=== PATIENT | female | born 1980 | race Caucasian/White ===

== ENCOUNTER → 2018-02-18 13:16 | Outpatient (CLI) | payer OTHER, MEDICAID, SELFPAY ==
--- NOTE | 2018-02-18 13:18 | DI.US.S_ITS ---
PROCEDURE: US PERIPH VENOUS LOW EXTREM RT INDICATIONS: RIGHT LEG SWELLING TECHNIQUE: Real-time imaging, as well as color and pulse Doppler interrogation, were performed of the lower extremity deep veins from the inguinal ligament to the popliteal fossa. COMPARISON: None. FINDINGS: The deep veins are normally compressible, and free of intraluminal thrombus. Color and pulse Doppler demonstrate normal phasic intraluminal flow. There is normal augmentation response to distal compression maneuver. IMPRESSION: Negative for DVT Dictated by: Daniel Kinney M.D. on 02/18/2018 at 14:22 Approved by: Daniel Kinney M.D. on 02/18/2018 at 14:23
== END ==
PROVIDERS: PCP Family Medicine; Visit Provider Family Medicine
DX: M79.89 Other specified soft tissue disorders (principal)
CPT/HCPCS: 93971

== ENCOUNTER → 2018-05-03 14:30 | Outpatient (CLI) | payer OTHER, MEDICAID, SELFPAY | PROVIDERS: PCP Family Medicine; Visit Provider Physician Assistant | DX: R52 Pain, unspecified (principal) | CPT/HCPCS: 87086 ==

== ENCOUNTER → 2018-10-29 15:41 | Outpatient (CLI) | payer OTHER, MEDICAID, SELFPAY ==
[2018-10-29 17:08] LABS: Add Manual Diff / Slide Review NO; Basophils Absolute Auto 0 /uL (0-100); Basophils Percent Auto 0.5 % (0-2); Eosinophils Absolute Auto 300 /uL (0-450); Eosinophils Percent Auto 3.4 % (2-4); Hematocrit 43.6 % (36-46); Hemoglobin 14.3 g/dL (12.0-16.0); Lymphocytes Absolute Auto 2200 /uL (1100-4500); Lymphocytes Percent Auto 25.2 % (25-40); Mean Corpuscular HGB Conc 32.8 % (30-36); Mean Corpuscular Hemoglobin 30.6 PG (26-34); Mean Corpuscular Volume 93.2 fL (80-100); Monocytes Absolute Auto 600 /uL (0-900); Monocytes Percent Auto 6.6 % (3-14); Neutrophils Absolute Auto 5500 /uL (1500-7000); Neutrophils Percent Auto 64.3 % (50-75); Platelet Count 302 X10^3/uL (150-400); Red Blood Cell Count 4.68 X10^6/uL (4.0-5.2); Red Cell Distribution Width 13.3 % (11.6-14.8); White Blood Cell Count 8.6 X10^3/uL (4.5-11.0)
[2018-10-29 17:47] LABS: Alanine Aminotransferase 28 IU/L (9-52); Albumin 4.8 g/dL (3.5-5.0); Albumin Globulin Ratio 1.6 (1.0-2.8); Alkaline Phosphatase 56 U/L (38-126); Aspartate Aminotransferase 29 IU/L (14-36); BUN Creatinine Ratio 22.9 (6-22); Bilirubin Total 0.2 mg/dL (0.2-1.3); Blood Urea Nitrogen 16 mg/dL (7-17); Calcium 9.5 mg/dL (8.4-10.2); Carbon Dioxide 28 mmol/L (22-32); Chloride 101 mmol/L (98-107); Cholesterol 181 mg/dL (140-199); Estimated Glomerular Filt Rate > 60.0 mL/min (>60); Glucose 90 mg/dL (70-100); HDL Cholesterol 65 mg/dL (40-60); HEMOLYSIS < 15 (0-50); LDL Cholesterol Calculated 89 mg/dL (<100); Potassium 3.9 mmol/L (3.4-5.1); Sodium 139 mmol/L (137-145); Total Protein 7.8 g/dL (6.3-8.2); Triglycerides 134 mg/dL (35-150)
[2018-10-29 17:58] LABS: C-Reactive Protein Quant < 0.5 mg/dL (<1.0)
[2018-10-29 18:12] LABS: Erythrocyte Sedimentation Rate 5 MM/HR (0-20)
[2018-10-29 18:19] LABS: TSH w/ Reflex to FT4 0.75 uIU/mL (0.47-4.68)
== END ==
PROVIDERS: PCP Family Medicine; Visit Provider Family Medicine
DX: E66.3 Overweight (principal); M79.10 Myalgia, unspecified site; Z13.1 Encounter for screening for diabetes mellitus; Z13.220 Encounter for screening for lipoid disorders
CPT/HCPCS: 36415; 80053; 80061; 84443; 85025; 85651; 86140

== ENCOUNTER → 2018-12-31 16:11 | Outpatient (CLI) | payer OTHER, MEDICAID, SELFPAY ==
[2018-12-31 17:20] LABS: Rheumatoid Factor < 8.6 IU/mL (<12.0)
[2019-01-04 11:41] LABS: CCP Antibody (IgG) < 16 Units (< 20)
== END ==
PROVIDERS: PCP Family Medicine; Visit Provider Family Medicine
DX: M25.50 Pain in unspecified joint (principal)
CPT/HCPCS: 36415; 83516; 86430

== ENCOUNTER → 2019-03-18 17:01 | Outpatient (CLI) | payer OTHER, MEDICAID, SELFPAY ==
--- NOTE | 2019-03-18 17:03 | DI.RAD.S_ITS ---
PROCEDURE: XR KNEE LT 3V INDICATIONS: sunrise view, OA, RA, CPPP TECHNIQUE: 3 views of the knee were acquired. COMPARISON: None. FINDINGS: Bones: No fractures or dislocations. No suspicious bony lesions. Mild tricompartmental osteoarthritis. No chondrocalcinosis. Soft tissues: No joint effusion. No suspicious soft tissue calcifications. IMPRESSION: Mild tricompartmental osteoarthritis. Dictated by: Yahaira Mixon MD, PhD on 03/18/2019 at 18:18 Approved by: Yahaira Mixon MD, PhD on 03/18/2019 at 18:18
--- NOTE | 2019-03-18 17:03 | DI.RAD.S_ITS ---
PROCEDURE: XR KNEE RT 3V INDICATIONS: sunrise view, OA, RA, CPPP TECHNIQUE: 3 views of the knee were acquired. COMPARISON: None. FINDINGS: Bones: No fractures or dislocations. No suspicious bony lesions. Mild tricompartmental osteoarthritis. No chondrocalcinosis. Soft tissues: No joint effusion. No suspicious soft tissue calcifications. IMPRESSION: Mild tricompartmental osteoarthritis. Dictated by: Yahaira Mixon MD, PhD on 03/18/2019 at 18:19 Approved by: Yahaira Mixon MD, PhD on 03/18/2019 at 18:19
== END ==
PROVIDERS: PCP Family Medicine; Visit Provider Family Medicine
DX: M17.0 Bilateral primary osteoarthritis of knee (principal); M25.561 Pain in right knee; M25.562 Pain in left knee
CPT/HCPCS: 73562

== ENCOUNTER → 2019-09-28 16:54 | Outpatient (CLI) | payer OTHER, MEDICAID, SELFPAY ==
--- NOTE | 2019-09-28 | DI.MRI.S_ITS ---
PROCEDURE: MR KNEE LT WO CON INDICATIONS: LEFT KNEE PAIN TECHNIQUE: Noncontrast sagittal PD fast spin echo and T2 fast spin echo with fat saturation, sagittal 3-D FLASH with fat saturation; coronal T1 spin echo and PD fast spin echo with fat saturation, and axial PD fast spin echo with fat saturation through the knee. COMPARISON: [facility], CR, XR KNEE STANDING BILATERAL, 07/21/2019, 14:08. FINDINGS: Image quality: Excellent. Menisci: The medial meniscus is intact. There is linear oblique high T2 signal intensity traversing the free edge of the posterior horn lateral meniscus, demonstrating superior and inferior articular surface extension. Cruciate ligaments: The anterior and posterior cruciate ligaments appear intact. Medial structures: The medial collateral ligament appears intact. Visualized portions of the pes anserinus tendons appear normal. No abnormal bursal fluid. Lateral structures: The lateral collateral ligament, long and short heads of the biceps femoris tendon appear intact. The popliteus tendon appears normal. Iliotibial band appears normal. Anterior structures: The quadriceps and patellar tendons appear intact. Patellar alignment is normal. No femoral trochlear dysplasia or ventral trochlear prominence. No edema in the infrapatellar fat pad. Bones and cartilage: No bone marrow contusions or fractures. Mild tricompartmental articular osteophyte formation is present. Moderate diffuse articular cartilage loss overlies the weightbearing aspects of the medial femoral condyle and medial tibial plateau. Articular cartilage fibrillation and overlies the lateral patellar facet. Moderate articular cartilage loss overlies the medial patellar facet. Joint space: There is physiologic knee joint fluid. Trace Gallo's cyst. Normal appearing synovial plicae are incidentally noted. IMPRESSION: 1. Tricompartmental osteoarthritis with associated articular cartilage loss. 2. Posterior horn lateral meniscal tear. 3. Trace Gallo's cyst. Dictated by: Uzair Styles M.D. on 09/29/2019 at 8:54 Approved by: Uzair Styles M.D. on 09/29/2019 at 8:57
--- NOTE | 2019-09-28 | DI.MRI.S_ITS ---
PROCEDURE: MR KNEE RT WO CON INDICATIONS: RIGHT KNEE PAIN TECHNIQUE: Noncontrast sagittal PD fast spin echo and T2 fast spin echo with fat saturation, sagittal 3-D FLASH with fat saturation; coronal T1 spin echo and PD fast spin echo with fat saturation, and axial PD fast spin echo with fat saturation through the knee. COMPARISON: [facility], CR, XR KNEE STANDING BILATERAL, 07/21/2019, 14:08. FINDINGS: Image quality: Excellent. Menisci: The medial and lateral menisci demonstrate normal morphology and internal signal. The meniscal root ligaments appear intact. Cruciate ligaments: The anterior and posterior cruciate ligaments appear intact. Medial structures: The medial collateral ligament appears intact. Visualized portions of the pes anserinus tendons appear normal. No abnormal bursal fluid. Lateral structures: The lateral collateral ligament, long and short heads of the biceps femoris tendon appear intact. The popliteus tendon appears normal. Iliotibial band appears normal. Anterior structures: The quadriceps and patellar tendons appear intact. Patellar alignment is normal. No femoral trochlear dysplasia or ventral trochlear prominence. No edema in the infrapatellar fat pad. Bones and cartilage: No bone marrow contusions or fractures. Mild tricompartmental periarticular osteophyte formation is present. Mild diffuse articular cartilage loss overlies the weightbearing aspects of the medial femoral condyle and medial tibial plateau. Moderate articular cartilage loss overlies the medial and lateral patellar facets. Superimposed high-grade region of articular cartilage loss measuring 4 mm overlies the medial patellar apex. Joint space: There is physiologic knee joint fluid. Small Gallo's cyst. Normal appearing synovial plicae are incidentally noted. IMPRESSION: 1. Tricompartmental osteoarthritis. with associated articular cartilage loss. 2. No internal derangement. 3. Small Gallo's cyst. Dictated by: Uzair Styles M.D. on 09/29/2019 at 8:58 Approved by: Uzair Styles M.D. on 09/29/2019 at 9:04
[2019-09-28 18:49] LABS: Add Manual Diff / Slide Review NO; Basophils Absolute Auto 0 /uL (0-100); Basophils Percent Auto 0.5 % (0-2); Eosinophils Absolute Auto 300 /uL (0-450); Eosinophils Percent Auto 4.1 % (2-4); Hematocrit 42.3 % (36-46); Hemoglobin 14.5 g/dL (12.0-16.0); Lymphocytes Absolute Auto 2400 /uL (1100-4500); Lymphocytes Percent Auto 29.2 % (25-40); Mean Corpuscular HGB Conc 34.2 % (30-36); Mean Corpuscular Hemoglobin 31.3 PG (26-34); Mean Corpuscular Volume 91.7 fL (80-100); Monocytes Absolute Auto 600 /uL (0-900); Monocytes Percent Auto 7.7 % (3-14); Neutrophils Absolute Auto 4700 /uL (1500-7000); Neutrophils Percent Auto 58.5 % (50-75); Platelet Count 291 X10^3/uL (150-400); Red Blood Cell Count 4.62 X10^6/uL (4.0-5.2); White Blood Cell Count 8.1 X10^3/uL (4.5-11.0)
[2019-09-28 19:43] LABS: Free T4, Direct Thyroxine 1.17 ng/dL (0.78-2.19)
[2019-09-28 19:56] LABS: Thyroid Stimulating Hormone 2.16 uIU/mL (0.47-4.68)
== END ==
PROVIDERS: PCP Family Medicine; Visit Provider Orthopaedic Surgery
DX: M25.562 Pain in left knee (principal); M25.561 Pain in right knee; S83.282A Other tear of lateral meniscus, current injury, left knee, initial encounter; M17.0 Bilateral primary osteoarthritis of knee; M71.21 Synovial cyst of popliteal space [Baker], right knee; N92.0 Excessive and frequent menstruation with regular cycle; R68.89 Other general symptoms and signs
CPT/HCPCS: 36415; 73721; 84439; 84443; 84481; 85025

== ENCOUNTER → 2020-04-11 17:04 | Outpatient (CLI) | payer OTHER, MEDICAID, SELFPAY ==
[2020-04-11 17:56] LABS: Alanine Aminotransferase 14 IU/L (<35); Albumin 4.6 g/dL (3.5-5.0); Albumin Globulin Ratio 1.5 (1.0-2.8); Alkaline Phosphatase 55 U/L (38-126); Aspartate Aminotransferase 23 IU/L (14-36); BUN Creatinine Ratio 19.7 (6-22); Bilirubin Total 0.4 mg/dL (0.2-1.3); Blood Urea Nitrogen 13 mg/dL (7-17); Calcium 9.5 mg/dL (8.4-10.2); Carbon Dioxide 25 mmol/L (22-32); Chloride 106 mmol/L (98-107); Cholesterol 189 mg/dL (140-199); Estimated Glomerular Filt Rate > 60.0 mL/min (>60); Glucose 97 mg/dL (70-100); HDL Cholesterol 58 mg/dL (40-60); HEMOLYSIS < 15 (0-50); LDL Cholesterol Calculated 105 mg/dL (<100); Sodium 139 mmol/L (137-145); Total Protein 7.6 g/dL (6.3-8.2); Triglycerides 131 mg/dL (35-150)
[2020-04-11 17:58] LABS: Hemoglobin A1C% w Est Avg Glu 5.1 % (4.0-6.0)
[2020-04-11 18:13] LABS: Vitamin D 25 Hydroxy (D3) 33.3 ng/mL (30.0-100.0)
[2020-04-11 18:27] LABS: TSH w/ Reflex to FT4 0.96 uIU/mL (0.47-4.68)
[2020-04-12 09:39] LABS: Rubeola Measles IgG 22.8 AU/mL (Immune >16.4)
[2020-04-12 11:10] LABS: Mumps Virus IgG Antibody <9.0 AU/mL (Immune >10.9)
[2020-04-12 19:28] LABS: Rubella Antibody IgG 96.3 IU/mL (>15)
== END ==
PROVIDERS: PCP Family Medicine; Referring Provider Family Medicine; Visit Provider Family Medicine
DX: E28.2 Polycystic ovarian syndrome (principal); F32.9 Major depressive disorder, single episode, unspecified; L68.0 Hirsutism; R53.83 Other fatigue; Z13.1 Encounter for screening for diabetes mellitus; Z13.220 Encounter for screening for lipoid disorders; Z01.84 Encounter for antibody response examination; M85.80 Other specified disorders of bone density and structure, unspecified site
CPT/HCPCS: 36415; 80053; 80061; 82306; 83036; 84443; 86735; 86762; 86765

== ENCOUNTER → 2020-08-30 17:00 | Outpatient (CLI) | payer OTHER, MEDICAID, SELFPAY ==
--- NOTE | 2020-08-30 17:02 | DI.MG.S_ITS ---
BILATERAL DIGITAL SCREENING MAMMOGRAM 3D/2D WITH CAD: 08/30/2020 CLINICAL: Routine screening. Baseline exam. Family history of breast cancer. No prior exams were available for comparison. The tissue of both breasts is heterogeneously dense. This may lower the sensitivity of mammography. Current study was also evaluated with a Computer Aided Detection (CAD) system. No significant masses, calcifications, or other findings are seen in either breast. IMPRESSION: NEGATIVE There is no mammographic evidence of malignancy. A 1 year screening mammogram is recommended. This exam was interpreted at Station ID: [id number]. NOTE: For mammograms, a report in lay terms will be sent to the patient. Approximately 15% of breast malignancies will not be visualized mammographically. In the management of a palpable breast mass, a negative mammogram must not discourage biopsy of a clinically suspicious lesion. Electronically Signed By: Alan krueger/beverly:09/03/2020 07:36:27 letter sent: Normal Exam ACR BI-RADS Category 1: Negative 3341F
== END ==
PROVIDERS: PCP Family Medicine; Referring Provider Family Medicine; Visit Provider Family Medicine
DX: Z12.31 Encounter for screening mammogram for malignant neoplasm of breast (principal); Z80.3 Family history of malignant neoplasm of breast
CPT/HCPCS: 77063; 77067

== ENCOUNTER → 2020-09-10 15:44 | Outpatient (CLI) | payer OTHER, MEDICAID, SELFPAY ==
--- NOTE | 2020-09-10 15:45 | DI.RAD.S_ITS ---
PROCEDURE: XR FOOT RT MIN 3V INDICATIONS: 3-4th toe pain/injury, r/o fx TECHNIQUE: 3 views of the foot were acquired. COMPARISON: None. FINDINGS: Bones: No fractures or dislocations. No suspicious bony lesions. Soft tissues: No tibiotalar joint effusion. Achilles tendon appears normal. IMPRESSION: No fracture or subluxation found. Dictated by: Noe Cole M.D. on 09/10/2020 at 16:45 Approved by: Noe Cole M.D. on 09/10/2020 at 16:45
== END ==
PROVIDERS: PCP Family Medicine; Referring Provider Physician Assistant; Visit Provider Physician Assistant
DX: S99.921A Unspecified injury of right foot, initial encounter (principal); X58.XXXA Exposure to other specified factors, initial encounter
CPT/HCPCS: 73630

== ENCOUNTER → 2020-11-20 15:09 | Outpatient (CLI) | payer OTHER, MEDICAID, SELFPAY ==
[2020-11-20 15:39] LABS: Alanine Aminotransferase 17 IU/L (<35); Albumin 4.6 g/dL (3.5-5.0); Albumin Globulin Ratio 1.6 (1.0-2.8); Alkaline Phosphatase 62 U/L (38-126); Amylase 83 U/L (30-110); Aspartate Aminotransferase 22 IU/L (14-36); BUN Creatinine Ratio 23.9 (6-22); Bilirubin Total 0.1 mg/dL (0.2-1.3); Blood Urea Nitrogen 17 mg/dL (7-17); Calcium 10.2 mg/dL (8.4-10.2); Carbon Dioxide 27 mmol/L (22-32); Chloride 103 mmol/L (98-107); Estimated Glomerular Filt Rate > 60.0 mL/min (>60); Globulin 2.9 g/dL (1.7-4.1); Glucose 101 mg/dL (70-100); HEMOLYSIS < 15 (0-50); Lipase 60 U/L (23-300); Sodium 139 mmol/L (137-145); Total Protein 7.5 g/dL (6.3-8.2)
== END ==
PROVIDERS: PCP Family Medicine; Referring Provider Physician Assistant; Visit Provider Physician Assistant
DX: R10.9 Unspecified abdominal pain (principal)
CPT/HCPCS: 36415; 80053; 82150; 83690

== ENCOUNTER → 2021-10-17 16:31 | Outpatient (CLI) | payer OTHER, MEDICAID, SELFPAY ==
[2021-10-17 17:28] LABS: Add Manual Diff / Slide Review NO; Basophils Absolute Auto 0 /uL (0-100); Basophils Percent Auto 0.4 % (0-2); Eosinophils Absolute Auto 500 /uL (0-450); Eosinophils Percent Auto 4.7 % (2-4); Hematocrit 39.3 % (36-46); Hemoglobin 13.5 g/dL (12.0-16.0); Lymphocytes Absolute Auto 2500 /uL (1100-4500); Lymphocytes Percent Auto 23.9 % (25-40); Mean Corpuscular HGB Conc 34.3 % (30-36); Mean Corpuscular Hemoglobin 30.6 PG (26-34); Mean Corpuscular Volume 89.3 fL (80-100); Monocytes Absolute Auto 800 /uL (0-900); Monocytes Percent Auto 8.3 % (3-14); Neutrophils Absolute Auto 6400 /uL (1500-7000); Neutrophils Percent Auto 62.7 % (50-75); Platelet Count 316 X10^3/uL (150-400); Red Cell Distribution Width 13.1 % (11.6-14.8); White Blood Cell Count 10.2 X10^3/uL (4.5-11.0)
[2021-10-17 18:01] LABS: Alanine Aminotransferase 22 IU/L (<35); Albumin 4.6 g/dL (3.5-5.0); Albumin Globulin Ratio 1.7 (1.0-2.8); Alkaline Phosphatase 58 U/L (38-126); Aspartate Aminotransferase 31 IU/L (14-36); BUN Creatinine Ratio 22.5 (6-22); Bilirubin Total 0.3 mg/dL (0.2-1.3); Blood Urea Nitrogen 16 mg/dL (7-17); C-Reactive Protein Quant < 0.5 mg/dL (<1.0); Calcium 10.1 mg/dL (8.4-10.2); Carbon Dioxide 25 mmol/L (22-32); Chloride 106 mmol/L (98-107); Estimated Glomerular Filt Rate > 60.0 mL/min (>60); Globulin 2.7 g/dL (1.7-4.1); Glucose 93 mg/dL (70-100); HEMOLYSIS 17 (0-50); Potassium 4.7 mmol/L (3.4-5.1); Sodium 139 mmol/L (137-145); Total Protein 7.3 g/dL (6.3-8.2)
[2021-10-17 18:17] LABS: Vitamin D 25 Hydroxy (D3) 33.9 ng/mL (30.0-100.0)
[2021-10-17 18:30] LABS: TSH w/ Reflex to FT4 0.66 uIU/mL (0.47-4.68)
[2021-10-17 19:39] LABS: Erythrocyte Sedimentation Rate 33 MM/HR (0-20)
== END ==
PROVIDERS: PCP Family Medicine; Referring Provider Family Medicine; Visit Provider Family Medicine
DX: G44.219 Episodic tension-type headache, not intractable (principal); M54.2 Cervicalgia
CPT/HCPCS: 36415; 80053; 82306; 84443; 85025; 85651; 86140

== ENCOUNTER → 2021-11-03 15:54 | Outpatient (CLI) | payer OTHER, MEDICAID, SELFPAY ==
--- NOTE | 2021-11-03 15:55 | DI.RAD.S_ITS ---
PROCEDURE: XR CHEST 2V INDICATIONS: cough TECHNIQUE: 2 views of the chest were acquired. COMPARISON: None. FINDINGS: Surgical changes and devices: None. Lungs and pleura: Lungs are clear. No pleural effusions or pneumothorax. Mediastinum: Mediastinal contours are normal. Heart size is normal. Bones and chest wall: No suspicious bony abnormalities. Soft tissues appear unremarkable. IMPRESSION: No evidence acute pulmonary process. Dictated by: Severo Concepcion M.D. on 11/03/2021 at 15:31 Approved by: Severo Concepcion M.D. on 11/03/2021 at 15:32
== END ==
PROVIDERS: PCP Family Medicine; Referring Provider Nurse Practitioner Family; Visit Provider Nurse Practitioner Family
DX: T17.928A Food in respiratory tract, part unspecified causing other injury, initial encounter (principal)
CPT/HCPCS: 71046

== ENCOUNTER → 2021-11-14 12:08 | Outpatient (CLI) | payer OTHER, MEDICAID, SELFPAY ==
[2021-11-17 20:57] LABS: Alder IgE <0.10 kU/L (Class 0); Alternaria alternata IgE <0.10 kU/L (Class 0); Aspergillus fumigatus IgE <0.10 kU/L (Class 0); Box Elder IgE <0.10 kU/L (Class 0); Cladosporium herbarum IgE <0.10 kU/L (Class 0); Cockroach IgE <0.10 kU/L (Class 0); Cottonwood IgE <0.10 kU/L (Class 0); D farinae IgE <0.10 kU/L (Class 0); D pteronyssinus IgE <0.10 kU/L (Class 0); Dog Dander IgE <0.10 kU/L (Class 0); Elm Tree IgE <0.10 kU/L (Class 0); Immunoglobulin E 7 IU/mL (6-495); Mountain Cedar IgE <0.10 kU/L (Class 0); Mouse Urine Proteins IgE <0.10 kU/L (Class 0); Nettle IgE <0.10 kU/L (Class 0); Oak Tree IgE <0.10 kU/L (Class 0); Penicillium chrysogen IgE <0.10 kU/L (Class 0); Pigweed, Common IgE <0.10 kU/L (Class 0); Ragweed, Short <0.10 kU/L (Class 0); Sheep Sorrel IgE <0.10 kU/L (Class 0); Silver Birch IgE <0.10 kU/L (Class 0); Timothy Grass IgE <0.10 kU/L (Class 0); Walnut Allery IgE < 0.10 kU/L (Class 0); White ash IgE <0.10 kU/L (Class 0)
[2021-11-20 10:39] LABS: Cat Dander IgE <0.10
== END ==
PROVIDERS: PCP Family Medicine; Referring Provider Registered Nurse Diabetes Educator; Visit Provider Registered Nurse Diabetes Educator
DX: J45.40 Moderate persistent asthma, uncomplicated (principal)
CPT/HCPCS: 36415; 82785; 86003

== ENCOUNTER → 2022-02-20 16:12 | Outpatient (CLI) | payer OTHER, MEDICAID, SELFPAY ==
--- NOTE | 2022-02-20 16:14 | DI.MG.S_ITS ---
BILATERAL DIGITAL SCREENING MAMMOGRAM 3D/2D WITH CAD: 02/20/2022 CLINICAL: Routine screening. Family history of breast cancer. Comparison is made to exam dated: 08/30/2020 mammogram - [facility]. The tissue of both breasts is heterogeneously dense. This may lower the sensitivity of mammography. Current study was also evaluated with a Computer Aided Detection (CAD) system. There is a new asymmetry in the left breast middle depth lateral region seen on the craniocaudal view only. There also is a new asymmetry in the left breast anterior depth lateral region seen on the craniocaudal view only. No other significant masses, calcifications, or other findings are seen in either breast. IMPRESSION: INCOMPLETE: NEEDS ADDITIONAL IMAGING EVALUATION The new asymmetry in the left breast middle depth lateral region seen on the craniocaudal view only is indeterminate. Additional views with possible ultrasound are recommended. The new asymmetry in the left breast anterior depth lateral region seen on the craniocaudal view only is indeterminate. Additional views with possible ultrasound are recommended. Based on the Tyrer Cuzick model (a risk assessment model) the patient's lifetime risk is 14.9% and her 10 year risk is 2.2%. According to the ACR, ACS, and NCCN guidelines, an annual breast MRI exam along with mammogram is recommended if the patient's lifetime risk is 20% or greater. This exam was interpreted at Station ID: [id number]. NOTE: For mammograms, a report in lay terms will be sent to the patient. Approximately 15% of breast malignancies will not be visualized mammographically. In the management of a palpable breast mass, a negative mammogram must not discourage biopsy of a clinically suspicious lesion. Electronically Signed By: Ben Salas M.D., jr/beverly:02/21/2022 09:51:08 letter sent: Additional Imaging Needed ACR BI-RADS Category 0: Incomplete 3340F
== END ==
PROVIDERS: PCP Family Medicine; Referring Provider Family Medicine; Visit Provider Family Medicine
DX: Z12.31 Encounter for screening mammogram for malignant neoplasm of breast (principal); Z80.3 Family history of malignant neoplasm of breast
CPT/HCPCS: 77063; 77067

== ENCOUNTER → 2022-04-10 12:11 | Outpatient (CLI) | payer OTHER, MEDICAID, SELFPAY ==
--- NOTE | 2022-04-10 | DI.MG.S_ITS ---
UNILATERAL LEFT DIGITAL DIAGNOSTIC MAMMOGRAM 3D/2D WITH ADDITIONAL VIEWS: 04/10/2022 CLINICAL: Additional evaluation requested from prior study. Comparison is made to exams dated: 02/20/2022 mammogram and 08/30/2020 mammogram - [facility]. The tissue of left breast is heterogeneously dense. This may lower the sensitivity of mammography. There is a 0.4 cm round mass in the left breast at 5 o'clock middle depth 6 cm from the nipple. This is seen in additional views. There also is a new 0.6 cm oval mass in the left breast posterior depth lateral region seen on the craniocaudal view only 11 cm from the nipple. No other significant masses or calcifications are seen in the breast. IMPRESSION: INCOMPLETE: NEEDS ADDITIONAL IMAGING EVALUATION The 0.4 cm round mass in the left breast at 5 o'clock middle depth is indeterminate. An ultrasound is recommended. The new 0.6 cm oval mass in the left breast posterior depth lateral region seen on the craniocaudal view only is consistent with a solid mass or a lymph node and is indeterminate. An ultrasound is recommended. US will be performed and dictated separately. Based on the Tyrer Cuzick model (a risk assessment model) the patient's lifetime risk is 14.9% and her 10 year risk is 2.2%. According to the ACR, ACS, and NCCN guidelines, an annual breast MRI exam along with mammogram is recommended if the patient's lifetime risk is 20% or greater. This exam was interpreted at Station ID: [id number]. NOTE: For mammograms, a report in lay terms will be sent to the patient. Approximately 15% of breast malignancies will not be visualized mammographically. In the management of a palpable breast mass, a negative mammogram must not discourage biopsy of a clinically suspicious lesion. Electronically Signed By: Ousmane Cheema acr/:04/10/2022 12:38:13 letter sent: Need Ultrasound ACR BI-RADS Category 0: Incomplete 3340F
--- NOTE | 2022-04-10 12:13 | DI.US.S_ITS ---
PROCEDURE: US BREAST LT LIMITED COMPARISON: In the benign simple cyst and lymph node. INDICATIONS: Abnormal mammogram of left breast FINDINGS: IMPRESSION: In the left breast 4 o'clock position 6 cm from the nipple a simple cyst measures 4 x 5 x 5 mm. In the left breast 4 o'clock position 11 cm from the nipple there is a benign appearing lymph node measuring 6 x 3 x 5 mm. Both of these findings correlate with mammographic findings. Dictated by: Ousmane Cheema M.D. on 04/10/2022 at 12:54 Approved by: Ousmane Cheema M.D. on 04/10/2022 at 12:59
== END ==
PROVIDERS: PCP Family Medicine; Referring Provider Family Medicine; Visit Provider Family Medicine
DX: R92.8 Other abnormal and inconclusive findings on diagnostic imaging of breast (principal); N63.23 Unspecified lump in the left breast, lower outer quadrant
CPT/HCPCS: 76642; 77065; G0279

== ENCOUNTER → 2023-01-15 12:33 | Outpatient (CLI) | payer OTHER, MEDICAID, SELFPAY ==
--- NOTE | 2023-01-15 12:35 | DI.RAD.S_ITS ---
PROCEDURE: XR CERVICAL SPINE 2V OR 3V INDICATIONS: pain TECHNIQUE: 3 view(s) of the cervical spine were acquired. COMPARISON: None. FINDINGS: Bones: No fractures or dislocations to the T1 level. There is loss of cervical lordosis. The lateral masses of C1 appear intact on the odontoid view. No suspicious bony lesions. Mild degenerative disc disease at C5-C6 and C6-C7. Soft tissues: No prevertebral soft tissue swelling. IMPRESSION: Mild degenerative disc disease. Dictated by: Fuad Asif M.D. on 01/15/2023 at 18:24 Approved by: Fuad Asif M.D. on 01/15/2023 at 18:26
--- NOTE | 2023-01-15 12:35 | DI.RAD.S_ITS ---
PROCEDURE: XR LUMBAR SPINE MIN 4V INDICATIONS: pain TECHNIQUE: 5 views of the lumbar spine were acquired, including bilateral oblique views. COMPARISON: None. FINDINGS: Bones: 5 nonrib-bearing vertebrae are present. There is normal bony alignment. No vertebral body compression fractures. No suspicious bony lesions. Mild degenerative disc disease throughout the lumbar spine. Moderate facet arthropathy at L4-L5 and L5-S1. Soft tissues: Overlying bowel gas pattern is normal. No suspicious soft tissue calcifications. Oblique images: No pars defects. IMPRESSION: 1. Mild degenerative disc and facet disease. Dictated by: Fuad Asif M.D. on 01/15/2023 at 15:28 Approved by: Fuad Asif M.D. on 01/15/2023 at 15:30
--- NOTE | 2023-01-15 12:35 | DI.RAD.S_ITS ---
PROCEDURE: XR THORACIC SPINE 3V INDICATIONS: pain TECHNIQUE: 3 views of the thoracic spine were acquired. COMPARISON: None. FINDINGS: Bones: No fractures or dislocations. No suspicious bony lesions. Mild degenerative disc disease at T 6-T7, T8-T9, T9-T10, T10-T11, T11-T12 and T12-L1. 12 pairs of ribs are noted, and appear intact where visualized. Soft tissues: No paravertebral stripe thickening. IMPRESSION: 1. Mild degenerative disc disease. Dictated by: Fuad Asif M.D. on 01/15/2023 at 18:26 Approved by: Fuad Asif M.D. on 01/15/2023 at 18:29
== END ==
PROVIDERS: PCP Family Medicine; Referring Provider Family Medicine; Visit Provider Family Medicine
DX: G89.29 Other chronic pain (principal); M54.50 Low back pain, unspecified; M51.34 Other intervertebral disc degeneration, thoracic region; M51.36 Other intervertebral disc degeneration, lumbar region; M47.816 Spondylosis without myelopathy or radiculopathy, lumbar region; M50.322 Other cervical disc degeneration at C5-C6 level
CPT/HCPCS: 72040; 72072; 72110

== ENCOUNTER → 2023-04-03 10:53 | Outpatient (CLI) | payer OTHER, MEDICAID, SELFPAY ==
[2023-04-03 12:16] LABS: Add Manual Diff / Slide Review NO; Basophils Absolute Auto 0 /uL (0-100); Basophils Percent Auto 0.4 % (0-2); Eosinophils Absolute Auto 400 /uL (0-450); Eosinophils Percent Auto 4.3 % (2-4); Hematocrit 42.2 % (36-46); Hemoglobin 14.2 g/dL (12.0-16.0); Lymphocytes Absolute Auto 1700 /uL (1100-4500); Mean Corpuscular HGB Conc 33.5 % (30-36); Mean Corpuscular Hemoglobin 30.2 PG (26-34); Mean Corpuscular Volume 90.1 fL (80-100); Monocytes Absolute Auto 600 /uL (0-900); Monocytes Percent Auto 6.6 % (3-14); Neutrophils Absolute Auto 6300 /uL (1500-7000); Neutrophils Percent Auto 69.7 % (50-75); Platelet Count 321 X10^3/uL (150-400); Red Blood Cell Count 4.69 X10^6/uL (4.0-5.2); Red Cell Distribution Width 13.2 % (11.6-14.8); White Blood Cell Count 9.1 X10^3/uL (4.5-11.0)
[2023-04-03 12:27] LABS: Alanine Aminotransferase 22 IU/L (<35); Albumin 4.6 g/dL (3.5-5.0); Albumin Globulin Ratio 1.6 (1.0-2.8); Alkaline Phosphatase 71 U/L (38-126); Aspartate Aminotransferase 24 IU/L (14-36); BUN Creatinine Ratio 24.6 (6-22); Bilirubin Total 0.4 mg/dL (0.2-1.3); Blood Urea Nitrogen 16 mg/dL (7-17); Calcium 9.2 mg/dL (8.4-10.2); Carbon Dioxide 23 mmol/L (22-32); Chloride 106 mmol/L (98-107); Estimated Glomerular Filt Rate > 60 mL/min (>60); Globulin 2.8 g/dL (1.7-4.1); Glucose 90 mg/dL (70-100); HEMOLYSIS < 15 (0-50); Potassium 4.3 mmol/L (3.4-5.1); Sodium 138 mmol/L (137-145); Total Protein 7.4 g/dL (6.3-8.2)
[2023-04-03 12:44] LABS: Vitamin D 25 Hydroxy (D3) 40.3 ng/mL (30.0-100.0)
[2023-04-03 13:00] LABS: TSH w/ Reflex to FT4 0.87 uIU/mL (0.47-4.68)
[2023-04-03 13:17] LABS: Vitamin B12 653 pg/mL (239-931)
== END ==
PROVIDERS: PCP Family Medicine; Referring Provider Family Medicine; Visit Provider Family Medicine
DX: K62.5 Hemorrhage of anus and rectum (principal); R53.83 Other fatigue
CPT/HCPCS: 36415; 80053; 82306; 82607; 84443; 85025

== ENCOUNTER 2023-05-05 15:30 | Outpatient (RCR) | payer OTHER, MEDICAID, SELFPAY ==
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
--- NOTE | 2023-05-05 17:06 | PT.OTN ---
Current Diagnoses Other chronic pain (05/05/23) Stiffness of other specified joint, not elsewhere classified (05/05/23) Torticollis (05/05/23) Cervicalgia (05/05/23) Low back pain, unspecified (05/05/23) Pain in thoracic spine (05/05/23) Segmental and somatic dysfunction of head region (05/05/23) Segmental and somatic dysfunction of cervical region (05/05/23) Segmental and somatic dysfunction of thoracic region (05/05/23) Segmental and somatic dysfunction of lumbar region (05/05/23) Segmental and somatic dysfunction of sacral region (05/05/23) Segmental and somatic dysfunction of pelvic region (05/05/23) Physical Therapy Treatment Note PT-OP-A Visit Information Start: 04/30/23 16:16 Freq: Status: Active Protocol: Document 05/05/23 15:45 AB (Rec: 05/05/23 17:06 AB [id number]) Out-Patient Physical Therapy Visit Information Visit Information Visit Type Treatment Note Visit Note Pt arrived late to appointment Visit Start Time 15:42 Visit Stop Time 14:15 Total Visit Minutes 32 Visit Number 2 Number of BASIN CLEANER Visits 0 PT-OP-B Current Condition Start: 04/30/23 16:16 Freq: Status: Active Protocol: Document 04/30/23 16:17 AB (Rec: 04/30/23 17:45 AB [id number]) Current Condition History of Current Condition Onset Date Chronic Current Complaints Neck pain (7/10 at worst and 2 /10 at best) and migraines History of Current Condition The pt reports a chronic history of neck and low back pain. Initially it started as spasms that didn't allow her to move, however this has improved. At this point, she has pain most of the time, but she has not found a correlation between time of day or specific movements. She also reports migraines and possibly tension headaches as well. She also report tightness in her neck and upper back, and has a point in her upper back which can cause pain with certain movements such as bending her head forward. Prior Treatments and Tests Dry needling, OMT, acupunture: only temporary relief. Treatment Goals Patient/Caregiver Goals To improve the tightness in her neck PT-OP-C Subjective Start: 04/30/23 16:16 Freq: Status: Active Protocol: Document 05/05/23 15:45 AB (Rec: 05/05/23 17:06 AB [id number]) OP-PT Subjective Patient Comments Patient Comments The pt reports she has has migraines on and off for the last few days. PT-OP-J Posture/Palpation/Skin Start: 04/30/23 16:16 Freq: Status: Active Protocol: Document 04/30/23 16:17 AB (Rec: 04/30/23 17:45 AB [id number]) Posture Evaluation Position Sitting Evaluation View Lateral Head/C-Spine Posture Forward Head T-Spine Posture Increased Kyphosis PT-OP-K Range of Motion Start: 04/30/23 16:16 Freq: Status: Active Protocol: Document 04/30/23 16:17 AB (Rec: 04/30/23 17:45 AB [id number]) Cervical Spine Range of Motion Cervical Spine Active Degrees Testing Position Sitting Flexion 65 Extension 65 Rotation Left 55 Rotation Right 55 Lateral Flexion Left 40 Lateral Flexion Right 30 Comments Pain/discomfort with all motions PT-OP-L Special Tests Start: 04/30/23 16:16 Freq: Status: Active Protocol: Document 04/30/23 16:17 AB (Rec: 04/30/23 17:45 AB [id number]) Special Tests Cervical Spine Special Tests Cervical Extensor Endurance Test Test Results more than 30 sec Deep Neck Flexor Endurance Test Test Results more than 30 sec Traction Test Results negative PT-OP-M Strength Start: 04/30/23 16:16 Freq: Status: Active Protocol: Document 04/30/23 16:17 AB (Rec: 04/30/23 17:45 AB [id number]) Cervical Spine Strength Cervical Spine Manual Muscle Testing Flexion (C1-2) 5 Normal Extension 5 Normal Rotation Left 5 Normal Rotation Right 5 Normal Lateral Flexion Left (C3) 5 Normal Lateral Flexion Right (C3) 5 Normal Comments Denies pain with all Gross BUE strength WNL PT-OP-Q Treatments Start: 04/30/23 16:16 Freq: Status: Active Protocol: Document 05/05/23 15:45 AB (Rec: 05/05/23 17:06 AB [id number]) Therapeutic Exercises Supine Exercises Cervical rotation Side bilateral Reps/Minutes 2x10 ea Chin tucks Reps/Minutes 2x10, 3 sec holds Sidelying Exercises Open book Side bilateral Reps/Minutes 2x10, 3 sec hold Sitting Exercises Scalene stretch Side bilateral Reps/Minutes 1x30 sec UT stretch Side bilateral Reps/Minutes 3x30 sec Standing Exercises TB rows Resistance green TB Reps/Minutes 2x15 Other Exercises Cat/cow Reps/Minutes 2 min, 3 sec hold ea Comments sitting on heels to bias Tspine PT-OP-T Assessment and Plan Start: 04/30/23 16:16 Freq: Status: Active Protocol: Document 05/05/23 15:45 AB (Rec: 05/05/23 17:06 AB [id number]) Physical Therapy Assessment Goals Four Impairment Symptoms Short Term Goal (STG) Pt to report pain level of 4/ 10 or better with activity to show improving symptoms for an improved QOL. STG Duration 4 Residential Goal (LTG) Pt to report pain level of 2/ 10 or better with activity to show improving symptoms for an improved QOL. LTG Duration 6 Three Impairment Patient Questionnaire Short Term Goal (STG) Pt's NDI score to improve to 10/50 or better and QuickDASH to improve to 12% or better to show improving symptoms for a better QOL. STG Duration 4 Flash Designer Goal (LTG) Pt's NDI score to improve to 5 /50 or better and QuickDASH to improve to 6% or better to show improving symptoms for a better QOL. LTG Duration 6 Two Impairment AROM deficits Short Term Goal (STG) Pt's cervical spine bilateral rotation AROM to improve to 60 degrees or better to show improving mobility to perform ADLs, IADLs, and other functional activities with improved symptoms. STG Duration 4 Residential Goal (LTG) Pt's cervical spine bilateral rotation AROM to improve to 65 degrees or better to show improving mobility to perform ADLs, IADLs, and other functional activities with improved symptoms. LTG Duration 6 One Impairment AROM deficits Short Term Goal (STG) Pt's cervical spine right lateral flexion AROM to improve to 35 degrees or better to show improving mobility to perform ADLs, IADLs, and other functional activities with improved symptoms. STG Duration 4 Residential Goal (LTG) Pt's cervical spine right lateral flexion AROM to improve to 40 degrees or better to show improving mobility to perform ADLs, IADLs, and other functional activities with improved symptoms. LTG Duration 6 Assessment Summary Assessment Pt's HEP was established, with focus on cervical and thoracic spine mobility. Low level periscapular strengthening was performed, with good tolerance. The pt requires intermittent cues to perform exercises with good posture, specifically with TB rows. The pt would benefit from addition of more exercises to improve strength of postural muscles to decrease her symptoms. Physical Therapy Plan Frequency and Duration Frequency of Treatment 2x/Week Duration of treatment (weeks) 6 Plan of Care Start Date 04/30/23 Plan of Care End Date 06/11/23 Therapeutic Interventions Therapeutic Interventions Home Exercise Program,Joint Mobilizations,Manual Therapy, Neuromuscular Re-education, Patient/Caregiver Education, Self-Care/Home Management,Soft Tissue Mobilization,Taping, Therapeutic Activities, Therapeutic Exercises Modalities Cold Pack/Ice Massage,Electric Stimulation,Hot Packs Next Visit Focus/Plan Next Note Type Treatment Note Next Visit Plan Add mobility and strength exercises as tolerated. Perform manual therapy as indicated.
--- NOTE | 2023-06-22 10:31 | PT-OP ANOTE ---
Spoke with pt today, and pt would like to be discharged from PT at this time due to other commitments, which make it difficult to attend PT.
--- NOTE | 2023-06-22 10:33 | PT.OPDS ---
Current Diagnoses Other chronic pain (05/05/23) Stiffness of other specified joint, not elsewhere classified (05/05/23) Torticollis (05/05/23) Cervicalgia (05/05/23) Low back pain, unspecified (05/05/23) Pain in thoracic spine (05/05/23) Segmental and somatic dysfunction of head region (05/05/23) Segmental and somatic dysfunction of cervical region (05/05/23) Segmental and somatic dysfunction of thoracic region (05/05/23) Segmental and somatic dysfunction of lumbar region (05/05/23) Segmental and somatic dysfunction of sacral region (05/05/23) Segmental and somatic dysfunction of pelvic region (05/05/23) Visit Care Team Role Provider Type Allan Toledo DO Attending Provider Physician Family Provider Primary Care Provider Referring Provider Specialty: [facility] Practice Address: [address] [place] [address] Email: Visit Number Visit Number 2 Discharge Summary PT-OP-B Current Condition Start: 04/30/23 16:16 Freq: Status: Active Protocol: Document 04/30/23 16:17 AB (Rec: 04/30/23 17:45 AB [id number]) Current Condition History of Current Condition Onset Date Chronic Current Complaints Neck pain (7/10 at worst and 2 /10 at best) and migraines History of Current Condition The pt reports a chronic history of neck and low back pain. Initially it started as spasms that didn't allow her to move, however this has improved. At this point, she has pain most of the time, but she has not found a correlation between time of day or specific movements. She also reports migraines and possibly tension headaches as well. She also report tightness in her neck and upper back, and has a point in her upper back which can cause pain with certain movements such as bending her head forward. Prior Treatments and Tests Dry needling, OMT, acupunture: only temporary relief. Treatment Goals Patient/Caregiver Goals To improve the tightness in her neck PT-OP-C Subjective Start: 04/30/23 16:16 Freq: Status: Active Protocol: Document 05/05/23 15:45 AB (Rec: 05/05/23 17:06 AB [id number]) OP-PT Subjective Patient Comments Patient Comments The pt reports she has has migraines on and off for the last few days. PT-OP-J Posture/Palpation/Skin Start: 04/30/23 16:16 Freq: Status: Active Protocol: Document 04/30/23 16:17 AB (Rec: 04/30/23 17:45 AB [id number]) Posture Evaluation Position Sitting Evaluation View Lateral Head/C-Spine Posture Forward Head T-Spine Posture Increased Kyphosis PT-OP-K Range of Motion Start: 04/30/23 16:16 Freq: Status: Active Protocol: Document 04/30/23 16:17 AB (Rec: 04/30/23 17:45 AB [id number]) Cervical Spine Range of Motion Cervical Spine Active Degrees Testing Position Sitting Flexion 65 Extension 65 Rotation Left 55 Rotation Right 55 Lateral Flexion Left 40 Lateral Flexion Right 30 Comments Pain/discomfort with all motions PT-OP-L Special Tests Start: 04/30/23 16:16 Freq: Status: Active Protocol: Document 04/30/23 16:17 AB (Rec: 04/30/23 17:45 AB [id number]) Special Tests Cervical Spine Special Tests Cervical Extensor Endurance Test Test Results more than 30 sec Deep Neck Flexor Endurance Test Test Results more than 30 sec Traction Test Results negative PT-OP-M Strength Start: 04/30/23 16:16 Freq: Status: Active Protocol: Document 04/30/23 16:17 AB (Rec: 04/30/23 17:45 AB [id number]) Cervical Spine Strength Cervical Spine Manual Muscle Testing Flexion (C1-2) 5 Normal Extension 5 Normal Rotation Left 5 Normal Rotation Right 5 Normal Lateral Flexion Left (C3) 5 Normal Lateral Flexion Right (C3) 5 Normal Comments Denies pain with all Gross BUE strength WNL PT-OP-T Assessment and Plan Start: 04/30/23 16:16 Freq: Status: Active Protocol: Document 06/22/23 10:32 AB (Rec: 06/22/23 10:33 AB [id number]) Physical Therapy Plan Discharge Physical Therapy Discharge Reasons Patient Request Discharge Comments PT spoke with pt, and pt states she has other commitments at this time which make it difficult to attent PT appointments, therefore would like to be discharged from PT at this time.
== END 2023-06-24 10:24 | disposition home or self-care (01) ==
LOC: PHYS 15:30
PROVIDERS: Family Provider Family Medicine; PCP Family Medicine; Referring Provider Family Medicine; Visit Provider Family Medicine
DX: M43.6 Torticollis (principal); M54.2 Cervicalgia; M54.50 Low back pain, unspecified; M54.6 Pain in thoracic spine; G89.29 Other chronic pain; M25.69 Stiffness of other specified joint, not elsewhere classified; M99.00 Segmental and somatic dysfunction of head region; M99.03 Segmental and somatic dysfunction of lumbar region; M99.05 Segmental and somatic dysfunction of pelvic region; M99.04 Segmental and somatic dysfunction of sacral region; M99.01 Segmental and somatic dysfunction of cervical region; M99.02 Segmental and somatic dysfunction of thoracic region
CPT/HCPCS: 97110; 97163

== ENCOUNTER → 2023-08-04 16:27 | Outpatient (CLI) | payer OTHER, MEDICAID, SELFPAY ==
--- NOTE | 2023-08-04 16:32 | DI.MG.S_ITS ---
BILATERAL DIGITAL SCREENING MAMMOGRAM 3D/2D WITH CAD: 08/04/2023 CLINICAL: Routine screening. Family history of breast cancer. Comparison is made to exams dated: 02/20/2022 mammogram and 08/30/2020 mammogram - [facility]. There are scattered areas of fibroglandular density in both breasts (category b / 25%-50% glandular tissue). Current study was also evaluated with a Computer Aided Detection (CAD) system. There is a possible developing irregular equal density asymmetry in the left breast at 1 o'clock posterior depth. No other significant masses, calcifications, or other findings are seen in either breast. IMPRESSION: INCOMPLETE: NEEDS ADDITIONAL IMAGING EVALUATION The possible developing irregular equal density asymmetry in the left breast is indeterminate. Additional views with possible ultrasound are recommended. Based on the Tyrer Cuzick model (a risk assessment model) the patient's lifetime risk is 10.0% and her 10 year risk is 1.6%. According to the ACR, ACS, and NCCN guidelines, an annual breast MRI exam along with mammogram is recommended if the patient's lifetime risk is 20% or greater. This exam was interpreted at Station ID: [id number]. NOTE: For mammograms, a report in lay terms will be sent to the patient. Approximately 15% of breast malignancies will not be visualized mammographically. In the management of a palpable breast mass, a negative mammogram must not discourage biopsy of a clinically suspicious lesion. Electronically Signed By: Teri childress/beverly:08/05/2023 13:23:55 letter sent: Additional Imaging Needed ACR BI-RADS Category 0: Incomplete [id number]
== END ==
PROVIDERS: Family Provider Family Medicine; PCP Family Medicine; Referring Provider Family Medicine; Visit Provider Family Medicine
DX: Z12.31 Encounter for screening mammogram for malignant neoplasm of breast (principal); Z80.3 Family history of malignant neoplasm of breast
CPT/HCPCS: 77063; 77067

== ENCOUNTER → 2023-10-27 13:35 | Outpatient (CLI) | payer OTHER, MEDICAID, SELFPAY ==
--- NOTE | 2023-10-27 | DI.MG.S_ITS ---
UNILATERAL LEFT DIGITAL DIAGNOSTIC MAMMOGRAM 3D/2D WITH ADDITIONAL VIEWS: 10/27/2023 CLINICAL: Additional evaluation requested from prior study. Comparison is made to exams dated: 08/04/2023 mammogram, 04/10/2022 mammogram, 02/20/2022 mammogram, and 08/30/2020 mammogram - [facility]. There are scattered areas of fibroglandular density in the left breast (category b / 25%-50% glandular tissue). The possible developing irregular equal density asymmetry in the left breast at 1 o'clock posterior depth is not reproduced and presumably represented superimposed breast tissue. No other significant masses or calcifications are seen in the breast. IMPRESSION: NEGATIVE There is no mammographic evidence of malignancy. Return to annual mammogram screening schedule is recommended. Based on the Tyrer Cuzick model (a risk assessment model) the patient's lifetime risk is 10.0% and her 10 year risk is 1.6%. According to the ACR, ACS, and NCCN guidelines, an annual breast MRI exam along with mammogram is recommended if the patient's lifetime risk is 20% or greater. This exam was interpreted at Station ID: [id number]. NOTE: For mammograms, a report in lay terms will be sent to the patient. Approximately 15% of breast malignancies will not be visualized mammographically. In the management of a palpable breast mass, a negative mammogram must not discourage biopsy of a clinically suspicious lesion. Electronically Signed By: Alexis mcmillan/beverly:10/27/2023 16:00:17 letter sent: Normal Exam ACR BI-RADS Category 1: Negative [id number]
== END ==
PROVIDERS: Family Provider Family Medicine; PCP Family Medicine; Referring Provider Family Medicine; Visit Provider Family Medicine
DX: R92.8 Other abnormal and inconclusive findings on diagnostic imaging of breast (principal); R92.322 Mammographic fibroglandular density, left breast
CPT/HCPCS: 77065; G0279

== ENCOUNTER → 2024-03-22 15:17 | Outpatient (CLI) | payer OTHER, MEDICAID, SELFPAY ==
[2024-03-22 17:50] LABS: Alanine Aminotransferase 24 IU/L (<35); Albumin 4.8 g/dL (3.5-5.0); Albumin Globulin Ratio 1.9 (1.0-2.8); Alkaline Phosphatase 66 U/L (38-126); Aspartate Aminotransferase 26 IU/L (14-36); Bilirubin Total 0.3 mg/dL (0.2-1.3); Globulin 2.5 g/dL (1.7-4.1); HEMOLYSIS < 15 (0-50); Total Protein 7.3 g/dL (6.3-8.2)
[2024-03-22 18:22] LABS: Cortisol Random 8.52 ug/dL
[2024-03-24 00:36] LABS: Hepatitis A Antibody Total Negative (Negative)
[2024-03-24 15:31] LABS: Hepatitis B Surface Antigen NEGATIVE s/c (NEGATIVE)
[2024-03-24 15:45] LABS: Hep C Virus Ab w/Reflex Quant NEGATIVE s/c (NEGATIVE)
== END ==
PROVIDERS: Family Provider Family Medicine; PCP Family Medicine; Referring Provider Family Medicine; Visit Provider Family Medicine
DX: R74.01 Elevation of levels of liver transaminase levels (principal); R23.3 Spontaneous ecchymoses; Z63.79 Other stressful life events affecting family and household
CPT/HCPCS: 36415; 80076; 82533; 86708; 86803; 87340

== ENCOUNTER → 2024-03-31 14:36 | Outpatient (CLI) | payer OTHER, MEDICAID, SELFPAY ==
[2024-03-31 15:27] LABS: Add Manual Diff / Slide Review NO; Basophils Absolute Auto 100 /uL (0-100); Basophils Percent Auto 0.6 % (0-2); Eosinophils Absolute Auto 300 /uL (0-450); Hematocrit 42.9 % (36-46); Hemoglobin 14.3 g/dL (12.0-16.0); Lymphocytes Absolute Auto 2000 /uL (1100-4500); Lymphocytes Percent Auto 17.9 % (25-40); Mean Corpuscular HGB Conc 33.4 % (30-36); Mean Corpuscular Hemoglobin 30.1 PG (26-34); Mean Corpuscular Volume 90.3 fL (80-100); Monocytes Absolute Auto 700 /uL (0-900); Monocytes Percent Auto 6.7 % (3-14); Neutrophils Absolute Auto 7900 /uL (1500-7000); Neutrophils Percent Auto 71.8 % (50-75); Platelet Count 342 X10^3/uL (150-400); Red Blood Cell Count 4.75 X10^6/uL (4.0-5.2); Red Cell Distribution Width 13.4 % (11.6-14.8)
[2024-03-31 15:43] LABS: Prothrombin Time 10.9 SECONDS (9.4-12.5)
[2024-03-31 15:53] LABS: Alanine Aminotransferase 28 IU/L (<35); Albumin 4.6 g/dL (3.5-5.0); Albumin Globulin Ratio 1.7 (1.0-2.8); Alkaline Phosphatase 68 U/L (38-126); Aspartate Aminotransferase 29 IU/L (14-36); BUN Creatinine Ratio 23.9 (6-22); Bilirubin Total 0.4 mg/dL (0.2-1.3); Blood Urea Nitrogen 16 mg/dL (7-17); Calcium 9.6 mg/dL (8.4-10.2); Carbon Dioxide 24 mmol/L (22-32); Chloride 108 mmol/L (98-107); Estimated Glomerular Filt Rate > 60 mL/min (>60); Globulin 2.7 g/dL (1.7-4.1); Glucose 88 mg/dL (70-100); HEMOLYSIS < 15 (0-50); Potassium 3.9 mmol/L (3.4-5.1); Sodium 140 mmol/L (137-145); Total Protein 7.3 g/dL (6.3-8.2)
[2024-03-31 16:17] LABS: Free T3, Triiodothyronine Free 3.55 pg/mL (2.77-5.27); Free T4, Direct Thyroxine 0.94 ng/dL (0.78-2.19)
[2024-03-31 16:30] LABS: Thyroid Stimulating Hormone 0.899 uIU/mL (0.47-4.68)
== END ==
PROVIDERS: Family Provider Family Medicine; PCP Family Medicine; Referring Provider Family Medicine; Visit Provider Family Medicine
DX: R23.3 Spontaneous ecchymoses (principal); G43.909 Migraine, unspecified, not intractable, without status migrainosus; R53.83 Other fatigue
CPT/HCPCS: 80053; 84439; 84443; 84481; 85025; 85610

== ENCOUNTER → 2024-09-16 15:47 | Outpatient (CLI) | payer OTHER, SELFPAY ==
--- NOTE | 2024-09-16 15:48 | DI.MG.S_ITS ---
BILATERAL DIGITAL SCREENING MAMMOGRAM 3D/2D WITH CAD: 09/16/2024 CLINICAL: Routine screening. Family history of breast cancer. Comparison is made to exams dated: 08/04/2023 mammogram, 02/20/2022 mammogram, 08/30/2020 mammogram, and 04/10/2022 mammogram - [facility]. There are scattered areas of fibroglandular density (category b / 25%-50% glandular tissue). Current study was also evaluated with a Computer Aided Detection (CAD) system. No significant masses, calcifications, or other findings are seen in either breast. There has been no significant interval change. IMPRESSION: NEGATIVE There is no mammographic evidence of malignancy. A 1 year screening mammogram is recommended. Based on the Tyrer Cuzick model (a risk assessment model) the patient's lifetime risk is 9.9% and her 10 year risk is 1.7%. According to the ACR, ACS, and NCCN guidelines, an annual breast MRI exam along with mammogram is recommended if the patient's lifetime risk is 20% or greater. This exam was interpreted at Station ID: [id number]. NOTE: For mammograms, a report in lay terms will be sent to the patient. Approximately 15% of breast malignancies will not be visualized mammographically. In the management of a palpable breast mass, a negative mammogram must not discourage biopsy of a clinically suspicious lesion. Electronically Signed By: Berta Proctor M.D., Ph.D. pepper/beverly:09/19/2024 09:10:22 letter sent: Normal Exam ACR BI-RADS Category 1: Negative
== END ==
PROVIDERS: Family Provider Family Medicine; PCP Family Medicine; Referring Provider Family Medicine; Visit Provider Family Medicine
DX: Z12.31 Encounter for screening mammogram for malignant neoplasm of breast (principal); Z80.3 Family history of malignant neoplasm of breast
CPT/HCPCS: 77063; 77067

== ENCOUNTER → 2025-01-05 12:09 | Outpatient (CLI) | payer OTHER, SELFPAY ==
[2025-01-05 15:39] LABS: Follicle Stimulating Hormone 4.85 mIU/mL
[2025-01-05 15:40] LABS: Luteinizing Hormone 5.22 mIU/mL
== END ==
PROVIDERS: Family Provider Family Medicine; PCP Family Medicine; Referring Provider Family Medicine; Visit Provider Family Medicine
DX: N92.1 Excessive and frequent menstruation with irregular cycle (principal); N95.1 Menopausal and female climacteric states
CPT/HCPCS: 36415; 82397; 82672; 83001; 83002

== ENCOUNTER → 2025-06-12 13:02 | Outpatient (CLI) | payer OTHER, SELFPAY ==
[2025-06-12 20:30] LABS: Clostridium Difficile Tox PCR Negative for C. diff (Negative)
[2025-06-12 21:21] LABS: Sample 1 Time 1741
== END ==
PROVIDERS: PCP Family Medicine; Referring Provider Nurse Practitioner Family; Visit Provider Nurse Practitioner Family
DX: R19.7 Diarrhea, unspecified (principal)
CPT/HCPCS: 82270; 87205; 87329; 87493